=== PATIENT | female | born 1950 | race Caucasian/White ===

== ENCOUNTER 2021-01-31 10:34 | Emergency (ER) | payer MEDICARE, MEDICAID ==
[~2021-01-31] VITALS: Ht 167.6 cm; Wt 84.0 kg
[2021-01-31] MEDS ORDERED: diltiazem 5mg/ml 5ml inj. IV ONE (10:40)
[2021-01-31] MEDS ORDERED: LIDOcaine 1% W/epiNEPHrine 1:200,000 10ml vial IJ ONE (10:40)
--- NOTE | 2021-01-31 10:45 | NUR ---
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
[2021-01-31] MEDS ORDERED: LIDOcaine 1% w/epiNEPHrine 1:200,000 30ml vial IJ ONE (11:05)
--- NOTE | 2021-01-31 12:21 | NUR ---
VIVIANA CALLED TO [facility], TRANSPORTATION ON THE WAY
[2021-01-31 12:37] VITALS: BP 108/67
== END 2021-01-31 12:39 | disposition home or self-care (01) ==
LOC: ER 10:35
DX: S01.81XA Laceration without foreign body of other part of head, initial encounter (principal); S09.90XA Unspecified injury of head, initial encounter; M54.2 Cervicalgia; F20.9 Schizophrenia, unspecified; I10 Essential (primary) hypertension; W19.XXXA Unspecified fall, initial encounter; Z91.81 History of falling; Y93.89 Activity, other specified; Y92.89 Other specified places as the place of occurrence of the external cause; Y99.8 Other external cause status
CPT/HCPCS: 12011; 93005; 99284